=== PATIENT | male | born 2005 | race Caucasian/White ===

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

== ENCOUNTER 2025-03-27 11:03 | Outpatient (AMB) | payer OTHER, SELFPAY ==
--- NOTE | 2025-03-27 11:06 | A.OFFPC_ITS ---
Vital Signs 03/27/25 11:13 Height 5 ft 1.81 in Weight 127 lb 4 oz BMI 23.4 BP 94/54 L Blood Pressure Location Rt brachial Position Sitting Respiration 13 Pulse 79 Pulse Source Pulse Oximeter Temp 98.2 F Temp Source Temporal Artery Scan Pulse Oximetry (%) 97 Oxygen Delivery Method Room Air Intake Visit Reasons: ADMINISTRATIVE COORDINATOR EST CARE Intake Note: Nader presents in the office today to establish care. Allergies No Known Allergies Allergy (Verified 03/27/25 11:09) Tobacco use date assessed: 03/27/25 Dental Screening Dental Screen Date: 03/27/25 Did you have a dental visit in the last 12 months?: No Did you have a dental problem in the last 6 months where you did not have access to dental care?: No Was dental information given to patient?: Yes HPI HPI Comments History of Present Illness Details 19-year-old male with a past medical his tory of Mark hereditary optic neuropathy, anxiety and ADHD presents to establish care. [place] [facility] He is due for a physical exam. He is with his father. He graduated from [employer]. He is not working currently. ADHD and anxiety are managed by a psychiatrist that he has telehealth visits with once per month. He is currently prescribed Adderall and sertraline. His father notes that they are in the process of getting in with a therapist again at the [facility]. Denies depression. He was previously seen at [facility] for Op[facility]mology. Last visit was a few years ago. Requests referral to local ophthalmology. ROS: Constitutional: No unexplained weight loss, fever, chills, fatigue or night sweats. Eyes: No eye pain, eye redness, eye discharge. ENT: No hearing loss, sneezing, congestion, runny nose or sore throat. Respiratory: No shortness of breath, cough or sputum production. Cardiovascular: No chest pain, chest pressure or chest discomfort. No palpitations or pedal edema. Gastrointestinal: No anorexia, nausea, vomiting or diarrhea. No abdominal pain or blood in stool. Genitourinary: No dysuria, hematuria, urinary frequency. Denies scrotal pain, testicular masses, urethral discharge. Neurologic: No headache, dizziness, syncope, unilateral weakness, ataxia, numbness or tingling in the extremities. Musculoskeletal: No muscle pain, back pain, joint pain or swelling. Hematologic/Lymphatics: No bleeding or bruising. No painful lymph nodes. Skin: No rash or itching. Endocrine: No cold or heat intolerance. No polyuria or polydipsia. Psychiatric: No depression Physical exam: Constitutional: Alert, in no distress. Eyes: PERRL. Extraocular muscles intact. Ear, Nose and Throat: Canals clear. TMs normal. Normal nasal mucosa. No nasal discharge. No oral lesions. Neck: Supple, Full range of motion. No lymphadenopathy. No palpable thyroid masses. Respiratory: Clear to auscultation. Cardiovascular: S1 S2 regular. No murmurs. Gastrointestinal: Abdomen soft, non-tender, non-distended. Normal bowel sounds. No palpable masses. Genitourinary: Patient deferred Neurologic: No focal neurological deficits. Symmetric patellar reflexes. Moves all extremities spontaneously. Sensation intact bilaterally. Skin: No rashes Musculoskeletal: No gross deformities. Normal range of motion. Extremities: Warm and well perfused. No clubbing, cyanosis or edema. Intact peripheral pulses bilaterally Psychiatric: Normal mood and affect [facility] Medical History (Updated 03/27/25 @ 11:31 by NICHOLAS De Souza) Routine physical examination Anxiety ADHD LHON (Rodger hereditary optic neuropathy) Family History (Updated 03/27/25 @ 11:13 by Nivia Quinones CMA) Mother Chronic mental disorder Father Chronic mental disorder Hypertension Other ADHD Social History (Updated 03/27/25 @ 11:13 by Nivia Quinones CMA) Household Members: Family Both parents involved: Yes Housing: Apartment Alcohol intake: never Patient Tobacco Use Status: Never used Tobacco e-Cigarette/Vaping Use: Never Used Second Hand Smoke Exposure: No service: No Current occupational status: other Cognitive needs: No Hearing needs: No Vision needs: No Questionnaire PHQ-9 Over the last 2 weeks, how often have you been bothered by any of the following problems? 1. Little interest or pleasure in doing things: not at all 2. Feeling down, depressed, or hopeless: not at all 3. Trouble falling or staying asleep, or sleeping too much: not at all 4. Feeling tired or having little energy: not at all 5. Poor appetite or overeating: not at all 6. Feeling bad about yourself - or that you are a failure or have let yourself or your family down: not at all 7. Trouble concentrating on things, such as reading the newspaper or watching television: not at all 8. Moving or speaking so slowly that other people could have noticed. Or the opposite - being so fidgety or restless that you have been moving around a lot more than usual: not at all 9. Thoughts that you would be better off or of hurting yourself in some way: not at all Total score: 0 Depression Screening Interpretation: Negative Depression Screening Done: Yes 58315 - PHQ-9 Billing: Yes Source: Developed by Drs. Zheng Mccauley, Jessica Rothman, Urban South and colleagues, with an educational deja from [employer]. Thrive Questionnaire Date Thrive assessed: 03/27/25 I am a: Patient What is your living situation today?: I have a steady place to live Within the past 12 months, did the food you bought not last and you didn't have the money to get more?: Never true Within the past 12 months, did you worry whether your food would run out before you got money to buy more?: Never true Do you have trouble paying for medicines?: No Do you have trouble getting transportation to medical appointments?: Yes Do you have trouble paying your heating and electricity bill?: Yes Do you have trouble taking care of your child, family member or friend?: No Do you have trouble with day-to-day activities such as bathing, preparing meals, shopping, managing finances, etc.?: No Are you currently unemployed and looking for a job?: Yes Are you interested in more education?: I choose not to answer this question Please select the resources that you would like help with: Transportation Currently or been in a relationship where the following occur: No concerns reported THRIVE Score: 2 AUDIT C Alcohol Use Questionnaire (AUDIT-C) 1. How often do you have a drink containing alcohol?: Never 3. How often do you have six or more drinks on one occasion?: Never Total Score: 0 SHAMIR-7 AMB Questionnaire SHAMIR-7 Date SHAMIR - 7 assessed: 03/27/25 Feeling nervous, anxious, or on edge: 1 = Several days Not being able to stop or control worryin = Several days Worrying too much about different things: 1 = Several days Trouble relaxin = Several days Being so restless that it is hard to sit still: 1 = Several days Becoming easily annoyed or irritable: 1 = Several days Feeling afraid as if something awful might happen: 1 = Several days Total SHAMIR-7 score (0-4 normal; 5-9 mild; 10-14 moderate; 15-21 severe): 7 Source: Developed by Drs. Zheng Mccauley, Jessica Rothman, Urban [place] and colleagues, with an educational deja from [employer]. SHAMIR-7 Assessment Billing SHAMIR-7 Assessment Tool: SHAMIR-7 Assessment 60384 Physical exam (Primary Care) Vital Signs: Last Vital Signs Temp 98.2 F 03/27/25 11:13 Pulse 79 03/27/25 11:13 Resp 13 03/27/25 11:13 BP 94/54 L 03/27/25 11:13 Pulse Ox 97 03/27/25 11:13 Oxygen Delivery Method Room Air 03/27/25 11:13 BMI result Body Mass Index 23.4 Tobacco/Smoking Status: Tobacco use Status Tobacco use date assessed 03/27/25 03/27/25 11:08 Patient Tobacco Use Status Never used Tobacco 03/27/25 11:13 e-Cigarette/Vaping Use Never Used 03/27/25 11:13 PHQ-9: PHQ-9 Score PHQ-9: Total score 0 03/27/25 15:01 Depression Screening Interpretation: Negative Thrive Assessment: Date of Thrive Assessment Date Thrive assessed 03/27/25 03/27/25 11:08 Currently or been in a relationship where the following occur: No concerns reported Office Procedures Flu Questionnaire Does the patient have a severe egg allergy?: No Does the patient have severe life threatening allergies?: No Does the patient have a fever or illness today?: No Has the patient ever had Guillain-Venetia Syndrome?: No Has the patient ever had any past reaction to a flu shot?: No Immunizations Fluarix [id number] (PF) 45 mcg (15 mcg x 3)/0.5 mL IM syringe Performing Provider: NICHOLAS De Souza [place] [facility] Administered by: Nivia Quinones CMA on 03/27/25 15:01 Dose Route Admin Location Dispensed Lot Number Expiration Date [facility] Machine Stripper 0.5 mL IM Left Deltoid 0.5 mL [id number] 12/19/24 [id number] [employer] VIS Given Date VIS Provided VIS Publication Date 03/27/25 Single Vaccine 24 Eligibility Eligibility Date Funding Source Not [facility] Eligible 03/27/25 Private Coding Level of Care Code Est Pt Prev Care 18-39y(47067) Diagnoses Routine physical examination Z00. Additional Codes SHAMIR-7 Assessment Billing - SHAMIR-7 Assessment Tool: SHAMIR-7 Assessment 12070 ([id number]) PHQ-9 - 88007 - PHQ-9 Billing: Yes ([id number]) Assessment & Plan Assessment & Plan (1) Routine physical examination: Code(s): Z00.00 - Encounter for general adult medical examination without abnormal findings Category: Medical Plan Patient is seen today for a routine physical. As part of this visit we reviewed the following issues, which are considered and essential part of preventative health in this age group: - Testicular cancer screening, which includes self exam teaching - Blood pressure screening - Cholesterol screening - Nutritional and exercise counseling - Counseling of injury prevention including fire prevention, smoke alarms and seat belt usage - Screening for depression - Prevention of and/or testing for infectious diseases - Education about skin cancer - Recommendations about immunizations - Recommendation of an eye exam - Screening for substance abuse Orders: Orders Lipid Panel 03/27/25 E78.5 - Hyperlipidemia, unspecified, Z00. - Encounter for general adult medical examination without abnormal findings Complete Blood Count no Diff 03/27/25 Z00.00 - Encounter for general adult medical examination without abnormal findings Influenza [id number] Immunization 03/27/25 Z23 - Encounter for immunization Comprehensive Met. Panel 03/27/25 Z00. 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
[2025-03-27 11:13] VITALS: BP 94/54; PULSE 79; RESP 13; TEMP 36.8; O2SAT 97; BMI 23.4
--- OUTSIDE RECORDS SUMMARY | 2025-03-27 13:31 | XMS_ITS | Clinical Summary ---
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/23/2023 LHON (Rodger hereditary optic neuropathy) 023 Low vision, both eyes 03/23/2023 Social History Tobacco Use Types Packs/Day Years Used Date Smoking Tobacco: Never Assessed Sex and Gender Information Value Date Recorded Sex Assigned at Male 01/02/2025 10:07 AM EDT Legal Sex Male 11:46 PM EST Gender Identity Male 01/02/2025 10:07 AM EDT Sexual Orientation Not on file Plan of Treatment Upcoming Encounters Date Type Department Care Team (Late st Contact Info) Description 2025 11:00 AM EDT Office Visit [facility] Optometry Service [address] [place] [address] Anna Carrasquillo, OD [address] [place] [address] Health Maintenance Due Date Last Done Comments HIV Screening 2005 MMR Vaccines (1 of 1 - Standard series) 2006 Varicella Vaccines (1 of 2 - 13+ 2-dose series) 2018 Meningococcal B Vaccine (1 o f 2 - Standard) 2021 HPV Vaccines (3 - Male 3-dos e series) 01/08/2023 10/16/2022, 03/19/2021 Hepatitis C Screening 09/01/2023 Depression Screening 06/22/2024 Hepatitis B Vaccines (1 of 3 - 19+ 3-dose series) 2024 COVID-19 Vaccine (2023-2 5 season) 2025 Influenza Vaccine (#1) 2025 1, 03/19/2018 DTaP/Tdap/Td Vaccines (2 - T d or Tdap) 05/29/2027 05/29/2017 Meningococcal Vaccine Aged Out 05/29/2017 No miky georges eligible based on patient's age to complete this topic HIB Vaccines Aged Out No longer eligi ble based on patient's age to complete this topic Hepatitis A Vaccines Aged Out No long er eligible based on patient's age to complete this topic IPV Vaccines Aged Out No longer eligi ble based on patient's age to complete this topic Pneumococcal Vaccine: Pediatrics (0 to 5 Years) and At-Risk Patients (6 to 49 Years) Aged Out No longer eligible b ased on patient's age to complete this topic Rotavirus Vaccines Aged Out No longer eligible based on patient's age to complete this topic Insurance [facility] Care Teams [employer] T[employer] Relationship Specialty Start Date End Date No, Pcp, PCP - General Pediatrics 03/23/23 Natalie Rothman PA [address] [place] [address] 03/23/23
== END 2025-03-27 11:43 | disposition home or self-care (01) ==
LOC: HO.HMCFM 11:04
PROVIDERS: PCP Nurse Practitioner Family; Visit Provider Physician Assistant Medical
DX: Z23 Encounter for immunization (principal)

== ENCOUNTER → 2025-03-27 11:03 | Outpatient (BNVA) | payer OTHER, SELFPAY | PROVIDERS: PCP Nurse Practitioner Family; Visit Provider Physician Assistant Medical | DX: Z00.00 Encounter for general adult medical examination without abnormal findings (principal); Z76.89 Persons encountering health services in other specified circumstances; Z23 Encounter for immunization; H46.8 Other optic neuritis; F90.9 Attention-deficit hyperactivity disorder, unspecified type; F41.9 Anxiety disorder, unspecified; Z79.899 Other long term (current) drug therapy; Z13.31 Encounter for screening for depression; Z13.39 Encounter for screening examination for other mental health and behavioral disorders | CPT/HCPCS: 90471; 90656; 96127; 99395 ==